=== PATIENT | female | born 2000 | race Two or more races ===

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

== ENCOUNTER → 2021-01-23 | Outpatient (CLI) | payer MEDICAID ==
[~2021-01-23] MED LIST changes: +POLY17PO5 PO
--- NOTE | 2021-01-23 12:07 | RAD ---
Right knee 3 views. HISTORY: Pain 3 views were taken of the right knee. There is not evidence of a fracture or acute osseous abnormalit y. IMPRESSION: 1. No acute osseous normality noted in the right knee. Electronically signed by: Mark Dior MD (01/23/2021 12:05 PM) [id number]
== END ==
LOC: RAD 11:33
PROVIDERS: ATTEND Nurse Practitioner Family
DX: M25.561 Pain in right knee (principal)
CPT/HCPCS: 73562